=== PATIENT | female | born 1990 | race Caucasian/White ===

== ENCOUNTER 2017-12-22 14:23 | Emergency (ER) | payer SELFPAY, OTHER ==
[2017-12-22] MEDS: FLUORESCEIN OPHTH 1 MG STRIP OD (14:45)
[2017-12-22] MEDS: TETRACAINE 0.5% OPHTH SOLN 4ML OD (14:45)
[2017-12-22] MEDS: GENTAMICIN 0.3% OPHTH OINT 3.5 GM OD (15:00)
== END 2017-12-22 15:22 | disposition home or self-care (01) ==
LOC: M ED 14:23
DX: S05.01XA Injury of conjunctiva and corneal abrasion without foreign body, right eye, initial encounter (principal); X58.XXXA Exposure to other specified factors, initial encounter; Y92.099 Unspecified place in other non-institutional residence as the place of occurrence of the external cause; Y93.9 Activity, unspecified; Y99.9 Unspecified external cause status; I10 Essential (primary) hypertension; Z79.899 Other long term (current) drug therapy
CPT/HCPCS: 99282

== ENCOUNTER 2018-05-10 22:11 | Emergency (ER) | payer OTHER, SELFPAY ==
[~2018-05-10] VITALS: Ht 162.6 cm; Wt 109.1 kg
[~2018-05-10 22:11] MED LIST: BUSP15TA47; LISI-538; SERT-138
[2018-05-10] MEDS ORDERED: BUPR10TASR PO (22:22)
[2018-05-10] MEDS ORDERED: ACETAMINOPHEN 500 MG TAB PO ONE (23:00)
[2018-05-10 23:08] LABS: HCG, SERUM QUALITATIVE NEGATIVE (NEGATIVE)
[2018-05-10 23:10] LABS: BASO % 0.3 % (0.0-1.0); EOS # 0.2 10^3/uL (0.0-0.50); EOS % 1.9 % (0.0-3.0); HEMATOCRIT 37.9 % (36.0-47.0); HEMOGLOBIN 12.6 g/dl (12.0-15.5); LYMPH # 1.9 10^3/uL (1.5-6.5); LYMPH % 20.3 % (24.0-44.0); MEAN CORPUSCULAR HEMOGLOBIN 27.6 pg (27.0-33.0); MEAN CORPUSCULAR HGB CONC 33.2 g/dl (32.0-36.5); MEAN CORPUSCULAR VOLUME 82.9 fl (80.0-96.0); MONO # 0.5 10^3/uL (0.0-0.8); MONO % 5.5 % (0.0-5.0); NEUTROPHILS # 6.7 10^3/uL (1.8-7.7); NEUTROPHILS % 71.6 % (36.0-66.0); PLATELET COUNT, AUTOMATED 300 10^3/uL (150-450); RED BLOOD COUNT 4.57 10^6/uL (4.00-5.40); WHITE BLOOD COUNT 9.4 10^3/uL (4.0-10.0)
[2018-05-10 23:24] LABS: ALBUMIN 3.9 GM/DL (3.2-5.2); ALT/SGPT 39 U/L (12-78); BILIRUBIN,DIRECT < 0.1 MG/DL (0.0-0.2); BILIRUBIN,TOTAL 0.3 MG/DL (0.2-1.0); BLOOD UREA NITROGEN 16 MG/DL (7-18); CALCIUM LEVEL 8.8 MG/DL (8.5-10.1); CARBON DIOXIDE LEVEL 26 MEQ/L (21-32); CHLORIDE LEVEL 107 MEQ/L (98-107); CPK CREATINE PHOSPHOKINASE 188 U/L (26-192); CREATININE FOR GFR 0.99 MG/DL (0.55-1.30); FREE T4 0.89 NG/DL (0.76-1.46); GLOMERULAR FILTRATION RATE > 60.0 (>60); GLUCOSE, FASTING 92 MG/DL (70-100); MB/CK RELATIVE INDEX 0.59 (< OR =4); SODIUM LEVEL 141 MEQ/L (136-145); TOTAL PROTEIN 7.1 GM/DL (6.4-8.2); TROPONIN I < 0.02 NG/ML (< 0.10)
[2018-05-10] MEDS ORDERED: HYDR12.55 PO (23:36)
[2018-05-10] MEDS ORDERED: LISI10TA4 PO (23:36)
[2018-05-10] MEDS ORDERED: KETOROLAC 30 MG/ML VIAL (J1885) IV ONE (23:45)
[2018-05-10] MEDS ORDERED: **hydrALAZINE HCL** 25 MG TAB PO ONE (23:45)
[2018-05-10] MEDS ORDERED: LISINOPRIL 10 MG TAB PO ONE (23:45)
[2018-05-10 23:53] VITALS: BP 154/92
[2018-05-10 23:53] LABS: APPEARANCE, URINE HAZY (CLEAR); BACTERIA, URINE AUTO NEGATIVE (NEGATIVE); BILIRUBIN, URINE AUTO NEGATIVE (NEGATIVE); BLOOD, URINE BLOOD NEGATIVE (NEGATIVE); COLOR, URINE YELLOW (YELLOW); GLUCOSE, URINE (UA) AUTO NEGATIVE (NEGATIVE); KETONE, URINE AUTO NEGATIVE (NEGATIVE); LEUKOCYTE ESTERASE, URINE AUTO NEGATIVE (NEGATIVE); NITRITE, URINE AUTO NEGATIVE (NEGATIVE); PROTEIN, URINE AUTO NEGATIVE (NEGATIVE); RBC, URINE AUTO 1 /HPF (0-3); SPECIFIC GRAVITY URINE AUTO 1.024 (1.002-1.035); SQUAMOUS EPITHELIAL CELL UR AU 18 /HPF (0-6); WBC, URINE AUTO 2 /HPF (0-3)
--- NOTE | 2018-05-10 23:53 | REPVR ---
EXAM: CT Head Without Contrast EXAM DATE/TIME: 05/10/2018 11:24 PM CLINICAL HISTORY: 27 years old, female; Pain; Headache TECHNIQUE: Imaging protocol: Axial computed tomography images of the head/brain without contrast. Radiation optimization: All CT scans at this facility use at least one of these dose optimization techniques: automated exposure control; mA and/or kV adjustment per patient size (includes targeted exams where dose is matched to clinical indication); or iterative reconstruction. COMPARISON: CT Head without contrast 05/04/2013 4:37 PM FINDINGS: Brain: No CT evidence of acute intracranial hemorrhage or acute territorial infarction. No significant mass effect or midline shift. Basal cisterns patent. Ventricles: Normal in size and configuration. Bones/joints: No acute osseous abnormality. Sinuses: Partial opacification of the left ethmoid air cells and left inferior frontal sinus. Mastoid air cells: Grossly unremarkable. Soft tissues: Grossly unremarkable. IMPRESSION: 1. No CT evidence of acute intracranial pathology. 2. Additional findings, as above. Electronically signed by: Ayush Barriga On 05/10/2018 23:53:29 PM
[2018-05-11 00:25] VITALS: BP 141/79
--- NOTE | 2018-05-11 06:45 | ECGEPIP ---
Stationary ECG Study [facility] - ED Test Date: 2018-05-10 Pat Name: EUN MEEHAN Department: Room: - Gender: F Project Administrator: af : [id number] Requested By: LONDON Glover Order Number: [id number] Reading MD: Angel Sawant Measurements Intervals [place] Rate: 79 P: 38 IA: 166 QRS: 11 QRSD: 94 T: 22 QT: 379 QTc: 435 Interpretive Statements SINUS RHYTHM SIMILAR TO 05/04/13 Electronically Signed On 05-11-2018 6:45:38 EDT by Angel Sawant
--- NOTE | 2018-05-11 08:10 | REP ---
Chest x-ray: Two views. History: Chest pain . Comparison study: May 04, 2013 . Findings: The lungs are well inflated and free of infiltrate. The pleural angles are sharp. The heart size is normal. Pulmonary vasculature is not increased. No significant bony abnormality is seen. Impression: Negative chest x-ray. Electronically Signed by Chase Le MD 05/11/2018 08:01 A
== END 2018-05-11 00:33 | disposition home or self-care (01) ==
LOC: M ED 22:11
DX: R51 Headache (principal); I16.0 Hypertensive urgency; Z87.891 Personal history of nicotine dependence; Z82.49 Family history of ischemic heart disease and other diseases of the circulatory system
CPT/HCPCS: 36415; 70450; 71046; 80048; 80076; 81001; 82550; 82553; 84439; 84443; 84703; 85025; 93005; 93041; 94760; 96374; 99284; J1885

== ENCOUNTER → 2019-01-05 | Outpatient (REF) | payer OTHER ==
[~2019-01-05] MED LIST changes: +BUPR10TASR PO; +HYDR12.55 PO; +LISI10TA15 PO; +LISI10TA4 PO
[2019-01-05 12:44] LABS: BASO % 0.5 % (0.0-1.0); EOS # 0.1 10^3/uL (0.0-0.5); EOS % 1.6 % (0.0-3.0); HEMOGLOBIN 13.6 g/dl (12.0-15.5); LYMPH # 1.5 10^3/uL (1.5-5.0); LYMPH % 20.4 % (24.0-44.0); MEAN CORPUSCULAR HEMOGLOBIN 27.7 pg (27.0-33.0); MEAN CORPUSCULAR HGB CONC 32.4 g/dl (32.0-36.5); MEAN CORPUSCULAR VOLUME 85.5 fl (80.0-96.0); MONO # 0.5 10^3/uL (0.0-0.8); MONO % 6.7 % (0.0-5.0); NEUTROPHILS # 5.2 10^3/uL (1.5-8.5); NEUTROPHILS % 70.3 % (36.0-66.0); PLATELET COUNT, AUTOMATED 319 10^3/uL (150-450); RED BLOOD COUNT 4.91 10^6/uL (4.00-5.40); WHITE BLOOD COUNT 7.5 10^3/uL (4.0-10.0)
[2019-01-05 12:52] LABS: ALBUMIN 3.7 GM/DL (3.2-5.2); ALT/SGPT 70 U/L (12-78); BILIRUBIN,TOTAL 0.6 MG/DL (0.2-1.0); BLOOD UREA NITROGEN 13 MG/DL (7-18); CALCIUM LEVEL 8.7 MG/DL (8.5-10.1); CARBON DIOXIDE LEVEL 27 MEQ/L (21-32); CHLORIDE LEVEL 107 MEQ/L (98-107); CHOLESTEROL LEVEL 218 MG/DL (<200); CHOLESTEROL RISK RATIO 6.411 (<5); CREATININE FOR GFR 0.89 MG/DL (0.55-1.30); FREE T4 0.88 NG/DL (0.76-1.46); GLOMERULAR FILTRATION RATE > 60.0 (>60); GLUCOSE, FASTING 103 MG/DL (70-100); HDL CHOLESTEROL 34 MG/DL (>40); LDL CHOLESTEROL 153 MG/DL (<100); NON-HDL-C 184 MG/DL; POTASSIUM SERUM 4.3 MEQ/L (3.5-5.1); SODIUM LEVEL 142 MEQ/L (136-145); TOTAL PROTEIN 6.9 GM/DL (6.4-8.2); TRIGLYCERIDES LEVEL 156 MG/DL (<150)
[2019-01-05 12:54] LABS: TOTAL 25(OH) VITAMIN D 17.9 NG/ML (30.0-100.0)
[2019-01-05 14:02] LABS: HEMOGLOBIN A1c 5.4 %
== END ==
LOC: M LAB REF 11:54
PROVIDERS: ATTEND Nurse Practitioner Family
DX: Z13.9 Encounter for screening, unspecified (principal); I10 Essential (primary) hypertension; E78.5 Hyperlipidemia, unspecified

== ENCOUNTER → 2019-05-26 | Outpatient (REF) | payer OTHER, SELFPAY ==
[2019-05-26 13:56] LABS: BASO % 0.5 % (0.0-1.0); EOS # 0.1 10^3/uL (0.0-0.5); EOS % 1.6 % (0.0-3.0); HEMATOCRIT 40.3 % (36.0-47.0); HEMOGLOBIN 12.9 g/dl (12.0-15.5); LYMPH # 1.4 10^3/uL (1.5-5.0); LYMPH % 19.1 % (24.0-44.0); MEAN CORPUSCULAR HEMOGLOBIN 27.9 pg (27.0-33.0); MEAN CORPUSCULAR VOLUME 87.2 fl (80.0-96.0); MONO # 0.4 10^3/uL (0.0-0.8); MONO % 5.4 % (0.0-5.0); NEUTROPHILS # 5.4 10^3/uL (1.5-8.5); NEUTROPHILS % 73.1 % (36.0-66.0); PLATELET COUNT, AUTOMATED 318 10^3/uL (150-450); RED BLOOD COUNT 4.62 10^6/uL (4.00-5.40); WHITE BLOOD COUNT 7.4 10^3/uL (4.0-10.0)
[2019-05-26 14:08] LABS: ALBUMIN 3.8 GM/DL (3.2-5.2); ALT/SGPT 99 U/L (12-78); BILIRUBIN,TOTAL 0.5 MG/DL (0.2-1.0); BLOOD UREA NITROGEN 13 MG/DL (7-18); CALCIUM LEVEL 9.1 MG/DL (8.5-10.1); CARBON DIOXIDE LEVEL 24 MEQ/L (21-32); CHLORIDE LEVEL 107 MEQ/L (98-107); CHOLESTEROL LEVEL 205 MG/DL (<200); CREATININE FOR GFR 0.91 MG/DL (0.55-1.30); GLOMERULAR FILTRATION RATE > 60.0 (>60); GLUCOSE, FASTING 104 MG/DL (70-100); HDL CHOLESTEROL 37 MG/DL (>40); LDL CHOLESTEROL 135 MG/DL (<100); NON-HDL-C 168 MG/DL; POTASSIUM SERUM 4.5 MEQ/L (3.5-5.1); SODIUM LEVEL 138 MEQ/L (136-145); TOTAL PROTEIN 7.3 GM/DL (6.4-8.2); TRIGLYCERIDES LEVEL 164 MG/DL (<150)
[2019-05-26 14:11] LABS: APPEARANCE, URINE CLOUDY (CLEAR); BACTERIA, URINE AUTO 3+ (NEGATIVE); BILIRUBIN, URINE AUTO NEGATIVE (NEGATIVE); BLOOD, URINE BLOOD NEGATIVE (NEGATIVE); COLOR, URINE YELLOW (YELLOW); GLUCOSE, URINE (UA) AUTO NEGATIVE (NEGATIVE); KETONE, URINE AUTO NEGATIVE (NEGATIVE); LEUKOCYTE ESTERASE, URINE AUTO TRACE (NEGATIVE); MUCUS, URINE SMALL (NEGATIVE); NITRITE, URINE AUTO NEGATIVE (NEGATIVE); PROTEIN, URINE AUTO NEGATIVE (NEGATIVE); RBC, URINE AUTO 3 /HPF (0-3); SPECIFIC GRAVITY URINE AUTO 1.023 (1.002-1.035); SQUAMOUS EPITHELIAL CELL UR AU 23 /HPF (0-6); UROBILINOGEN, URINE AUTO 0.2 mg/dL (0.0-2.0); WBC, URINE AUTO 15 /HPF (0-3)
[2019-05-26 14:12] LABS: TOTAL 25(OH) VITAMIN D 43.9 NG/ML (30.0-100.0)
[2019-05-26 14:13] LABS: HEMOGLOBIN A1c 5.5 %
== END ==
LOC: M LAB REF 12:53
PROVIDERS: ATTEND Nurse Practitioner Family
DX: E55.9 Vitamin D deficiency, unspecified (principal); Z13.9 Encounter for screening, unspecified; F41.8 Other specified anxiety disorders; E78.5 Hyperlipidemia, unspecified; I10 Essential (primary) hypertension

== ENCOUNTER → 2019-06-24 | Outpatient (REF) | payer BC | LOC: M SFHCWAGY 17:15 | PROVIDERS: ATTEND Nurse Practitioner Family | DX: Z12.4 Encounter for screening for malignant neoplasm of cervix (principal) | CPT/HCPCS: 87624; G0123 ==

== ENCOUNTER → 2019-08-25 | Outpatient (REF) | payer BC ==
[2019-08-25 14:09] LABS: BASO # 0.1 10^3/uL (0.0-0.2); BASO % 0.4 % (0.0-1.0); EOS # 0.1 10^3/uL (0.0-0.5); EOS % 1.2 % (0.0-3.0); HEMATOCRIT 42.2 % (36.0-47.0); HEMOGLOBIN 13.5 g/dl (12.0-15.5); LYMPH # 2.1 10^3/uL (1.5-5.0); LYMPH % 17.7 % (24.0-44.0); MEAN CORPUSCULAR HEMOGLOBIN 27.6 pg (27.0-33.0); MEAN CORPUSCULAR VOLUME 86.3 fl (80.0-96.0); MONO # 0.6 10^3/uL (0.0-0.8); MONO % 5.5 % (0.0-5.0); NEUTROPHILS # 8.7 10^3/uL (1.5-8.5); NEUTROPHILS % 74.8 % (36.0-66.0); PLATELET COUNT, AUTOMATED 349 10^3/uL (150-450); RED BLOOD COUNT 4.89 10^6/uL (4.00-5.40); WHITE BLOOD COUNT 11.6 10^3/uL (4.0-10.0)
[2019-08-25 14:26] LABS: APPEARANCE, URINE HAZY (CLEAR); BACTERIA, URINE AUTO 1+ (NEGATIVE); BILIRUBIN, URINE AUTO NEGATIVE (NEGATIVE); BLOOD, URINE BLOOD NEGATIVE (NEGATIVE); COLOR, URINE YELLOW (YELLOW); GLUCOSE, URINE (UA) AUTO NEGATIVE (NEGATIVE); KETONE, URINE AUTO NEGATIVE (NEGATIVE); LEUKOCYTE ESTERASE, URINE AUTO TRACE (NEGATIVE); MUCUS, URINE SMALL (NEGATIVE); NITRITE, URINE AUTO NEGATIVE (NEGATIVE); PROTEIN, URINE AUTO NEGATIVE (NEGATIVE); RBC, URINE AUTO 1 /HPF (0-3); SPECIFIC GRAVITY URINE AUTO 1.026 (1.002-1.035); SQUAMOUS EPITHELIAL CELL UR AU 4 /HPF (0-6); UROBILINOGEN, URINE AUTO 0.2 mg/dL (0.0-2.0); WBC, URINE AUTO 2 /HPF (0-3)
[2019-08-25 14:32] LABS: ALBUMIN 3.9 GM/DL (3.2-5.2); ALT/SGPT 66 U/L (12-78); BILIRUBIN,TOTAL 0.6 MG/DL (0.2-1.0); BLOOD UREA NITROGEN 13 MG/DL (7-18); CALCIUM LEVEL 9.2 MG/DL (8.5-10.1); CARBON DIOXIDE LEVEL 25 MEQ/L (21-32); CHLORIDE LEVEL 104 MEQ/L (98-107); CHOLESTEROL LEVEL 235 MG/DL (<200); CHOLESTEROL RISK RATIO 5.875 (<5); CREATININE FOR GFR 0.95 MG/DL (0.55-1.30); GLOMERULAR FILTRATION RATE > 60.0 (>60); GLUCOSE, FASTING 75 MG/DL (70-100); HDL CHOLESTEROL 40 MG/DL (>40); LDL CHOLESTEROL 141 MG/DL (<100); NON-HDL-C 195 MG/DL; POTASSIUM SERUM 4.4 MEQ/L (3.5-5.1); SODIUM LEVEL 138 MEQ/L (136-145); TOTAL PROTEIN 7.3 GM/DL (6.4-8.2); TRIGLYCERIDES LEVEL 271 MG/DL (<150)
== END ==
LOC: M LAB REF 12:04
PROVIDERS: ATTEND Nurse Practitioner Family
DX: R74.8 Abnormal levels of other serum enzymes (principal); N39.0 Urinary tract infection, site not specified; F41.8 Other specified anxiety disorders; E78.5 Hyperlipidemia, unspecified; I10 Essential (primary) hypertension

== ENCOUNTER 2019-09-07 15:13 | Emergency (ER) | payer BC ==
[2019-09-07] MEDS ORDERED: MECLIZINE 25 MG TABLET As Ordered ONE (17:11)
[2019-09-07] MEDS ORDERED: MECLIZINE 25 MG TABLET ONE (17:11)
[2019-10-03 22:48] LABS: ALBUMIN 3.5 GM/DL (3.2-5.2); ALT/SGPT 48 U/L (12-78); BILIRUBIN,TOTAL 0.4 MG/DL (0.2-1.0); BLOOD UREA NITROGEN 17 MG/DL (7-18); CALCIUM LEVEL 9.4 MG/DL (8.5-10.1); CARBON DIOXIDE LEVEL 27 MEQ/L (21-32); CHLORIDE LEVEL 108 MEQ/L (98-107); CREATININE FOR GFR 0.88 MG/DL (0.55-1.30); GLOMERULAR FILTRATION RATE > 60.0 (>60); GLUCOSE, FASTING 73 MG/DL (70-100); POTASSIUM SERUM 4.4 MEQ/L (3.5-5.1); SODIUM LEVEL 143 MEQ/L (136-145); TOTAL PROTEIN 7.1 GM/DL (6.4-8.2)
== END 2019-09-07 18:10 | disposition home or self-care (01) ==
LOC: M ED 15:13
DX: R42 Dizziness and giddiness (principal); E11.9 Type 2 diabetes mellitus without complications; I10 Essential (primary) hypertension; E28.2 Polycystic ovarian syndrome; Z79.899 Other long term (current) drug therapy

== ENCOUNTER → 2020-01-19 | Outpatient (REF) | payer BC | LOC: M SFHCWAGY 17:34 | PROVIDERS: ATTEND Nurse Practitioner Family | DX: R93.89 Abnormal findings on diagnostic imaging of other specified body structures (principal) ==

== ENCOUNTER → 2021-03-20 | Outpatient (CLI) | payer BC ==
[~2021-03-20] MED LIST changes: -LISI-538; -LISI10TA15 PO; +LISI10TA22 PO; +LISI10TA24 PO; -LISI10TA4 PO; +LISI20TA33
[2021-03-20 08:56] LABS: BASO # 0.1 10^3/uL (0.0-0.2); BASO % 0.7 % (0.0-1.0); EOS # 0.2 10^3/uL (0.0-0.5); EOS % 2.2 % (0.0-3.0); HEMATOCRIT 39.7 % (36.0-47.0); LYMPH # 1.9 10^3/uL (1.5-5.0); LYMPH % 21.2 % (24.0-44.0); MEAN CORPUSCULAR HEMOGLOBIN 29.3 pg (27.0-33.0); MEAN CORPUSCULAR HGB CONC 32.7 g/dl (32.0-36.5); MEAN CORPUSCULAR VOLUME 89.4 fl (80.0-96.0); MONO # 0.5 10^3/uL (0.0-0.8); MONO % 5.6 % (2.0-8.0); NEUTROPHILS # 6.3 10^3/uL (1.5-8.5); NEUTROPHILS % 70.1 % (36.0-66.0); PLATELET COUNT, AUTOMATED 376 10^3/uL (150-450); RED BLOOD COUNT 4.44 10^6/uL (4.00-5.40)
[2021-03-20 09:37] LABS: IMMUNOGLOBULIN E 25.8 IU/ML (<100); THYROID STIMULATING HORMONE 2.47 uIU/ML (0.358-3.740); THYROXINE (T4) 12.1 UG/DL (4.5-12.0)
== END ==
LOC: M LAB 07:49
PROVIDERS: ATTEND Physician Assistant
DX: R53.81 Other malaise (principal); J30.89 Other allergic rhinitis; J01.81 Other acute recurrent sinusitis

== ENCOUNTER → 2021-04-17 | Outpatient (CLI) | payer BC | LOC: M LAB 06:14 | PROVIDERS: ATTEND Physician Assistant | DX: J30.89 Other allergic rhinitis (principal) ==

== ENCOUNTER → 2021-04-18 | Outpatient (CLI) | payer BC ==
[2021-04-18 17:50] LABS: HCG, SERUM QUALITATIVE POSITIVE (NEGATIVE)
== END ==
LOC: M LAB 16:27
PROVIDERS: ATTEND Nurse Practitioner Family
DX: N91.1 Secondary amenorrhea (principal)

== ENCOUNTER 2021-05-03 08:37 | Emergency (ER) | payer BC ==
[~2021-05-03] VITALS: Ht 162.6 cm; Wt 99.1 kg
[~2021-05-03 08:37] MED LIST changes: -BUSP10TA; -DEBL1TAB; -LEVO25TA5
[2021-05-03] MEDS ORDERED: LEVO25TA5 (08:53)
[2021-05-03] MEDS ORDERED: BUSP10TA (08:53)
[2021-05-03] MEDS ORDERED: DEBL1TAB (08:53)
[2021-05-03 09:13] LABS: BASO % 0.4 % (0.0-1.0); EOS # 0.1 10^3/uL (0.0-0.5); EOS % 1.2 % (0.0-3.0); HEMATOCRIT 35.9 % (36.0-47.0); HEMOGLOBIN 12.3 g/dl (12.0-15.5); LYMPH # 1.6 10^3/uL (1.5-5.0); LYMPH % 18.1 % (24.0-44.0); MEAN CORPUSCULAR HEMOGLOBIN 29.6 pg (27.0-33.0); MEAN CORPUSCULAR HGB CONC 34.3 g/dl (32.0-36.5); MEAN CORPUSCULAR VOLUME 86.3 fl (80.0-96.0); MONO # 0.7 10^3/uL (0.0-0.8); MONO % 7.4 % (2.0-8.0); NEUTROPHILS # 6.4 10^3/uL (1.5-8.5); NEUTROPHILS % 72.6 % (36.0-66.0); PLATELET COUNT, AUTOMATED 378 10^3/uL (150-450); RED BLOOD COUNT 4.16 10^6/uL (4.00-5.40); WHITE BLOOD COUNT 8.9 10^3/uL (4.0-10.0)
[2021-05-03 11:40] LABS: BILIRUBIN, URINE MANUAL NEGATIVE (NEGATIVE); GLUCOSE, URINE (UA) MANUAL NEGATIVE (NEGATIVE); KETONE, URINE MANUAL NEGATIVE (NEGATIVE); UROBILINOGEN, URINE MANUAL NORMAL (NORMAL)
[2021-05-03 11:48] LABS: RBC, URINE TNTC /hpf (0-3); SQUAMOUS EPITHELIAL CELL URINE LARGE AMOUNT /hpf (SMALL AMT); TRANSITIONAL EPI CELLS, URINE SMALL AMOUNT /hpf
[2021-05-03 11:49] LABS: BACTERIA, URINE MOD AMOUNT; MUCUS, URINE SMALL AMOUNT (NEGATIVE)
[2021-05-03 12:13] VITALS: BP 130/86
== END 2021-05-03 12:20 | disposition home or self-care (01) ==
LOC: M ED 08:37
DX: O20.8 Other hemorrhage in early pregnancy (principal); Z3A.01 Less than 8 weeks gestation of pregnancy; O10.011 Pre-existing essential hypertension complicating pregnancy, first trimester; O34.81 Maternal care for other abnormalities of pelvic organs, first trimester; Z79.899 Other long term (current) drug therapy

== ENCOUNTER → 2021-05-03 | Outpatient (REF) | payer BC ==
[~2021-05-03] MED LIST changes: +BUSP10TA; +DEBL1TAB; +LEVO25TA5
[2021-05-03 18:18] LABS: HEPATITIS B SURFACE ANTIGEN NEGATIVE (NEGATIVE); HEPATITIS C VIRUS ABY INDEX 0.2 INDEX (<0.8); HIV 1&2 SCREEN CENTAUR NEGATIVE (NEGATIVE)
== END ==
LOC: M LAB REF 16:10
PROVIDERS: ATTEND Obstetrics & Gynecology
DX: Z34.81 Encounter for supervision of other normal pregnancy, first trimester (principal)

== ENCOUNTER → 2021-10-01 | Outpatient (CLI) | payer BC ==
[~2021-10-01] MED LIST changes: +BUSP10TA; +DEBL1TAB; +LEVO25TA5
[2021-10-01 08:18] LABS: BASO % 0.1 % (0.0-1.0); EOS # 0.1 10^3/uL (0.0-0.5); EOS % 0.9 % (0.0-3.0); HEMATOCRIT 32.3 % (36.0-47.0); HEMOGLOBIN 10.5 g/dl (12.0-15.5); LYMPH % 9.1 % (24.0-44.0); MEAN CORPUSCULAR HGB CONC 32.5 g/dl (32.0-36.5); MEAN CORPUSCULAR VOLUME 86.1 fl (80.0-96.0); MONO # 0.5 10^3/uL (0.0-0.8); MONO % 4.5 % (2.0-8.0); NEUTROPHILS # 9.3 10^3/uL (1.5-8.5); NEUTROPHILS % 84.9 % (36.0-66.0); PLATELET COUNT, AUTOMATED 191 10^3/uL (150-450); RED BLOOD COUNT 3.75 10^6/uL (4.00-5.40)
== END ==
LOC: M LAB 06:53
PROVIDERS: ATTEND Obstetrics & Gynecology
DX: Z34.02 Encounter for supervision of normal first pregnancy, second trimester (principal); Z36.89 Encounter for other specified antenatal screening

== ENCOUNTER 2021-11-20 15:24 | Inpatient (IN) | payer BC ==
[~2021-11-20] VITALS: Ht 162.6 cm; Wt 126.7 kg
[2021-11-20] VITALS (8 sets, daily range): BP systolic 136–188; BP diastolic 75–91
[~2021-11-20 15:24] MED LIST changes: -GLYB5TAB6 PO; -LABE20TAB PO; -METF750T36 PO; -MULTTAB20 PO; -TUMS1000 PO
[2021-11-20] MEDS ORDERED: TUMS1000 PO (15:52)
[2021-11-20] MEDS ORDERED: MULTTAB20 PO (15:52)
[2021-11-20] MEDS ORDERED: GLYB5TAB6 PO (15:54)
[2021-11-20] MEDS ORDERED: LABE20TAB PO (15:55)
[2021-11-20] MEDS ORDERED: METF750T36 PO (15:56)
[2021-11-20] MEDS ORDERED: HOME MED LIST COMPLETE! XX SCH (16:00)
[2021-11-20] MEDS: BETAMETHASONE SOLUSPAN 6MG/ML 5ML VIAL (J0702 PER 3MG) IM SCH (16:29)
[2021-11-20] MEDS: SERTRALINE HCL 50 MG TAB PO SCH (20:53)
[2021-11-20] MEDS: LABETALOL 200 MG TAB PO SCH (20:55)
[2021-11-20] MEDS ORDERED: metFORMIN XR 500MG TAB *GLUCOPHAGE XR PO ONE (21:05)
[2021-11-21] VITALS (7 sets, daily range): BP systolic 120–182; BP diastolic 57–84
[2021-11-21] MEDS: LEVOTHYROXINE 25MCG TABLET (0.025MG) PO SCH (05:43)
[2021-11-21 07:29] LABS: HEMATOCRIT 36.1 % (36.0-47.0); HEMOGLOBIN 12.3 g/dl (12.0-15.5); MEAN CORPUSCULAR HEMOGLOBIN 29.4 pg (27.0-33.0); MEAN CORPUSCULAR HGB CONC 34.1 g/dl (32.0-36.5); MEAN CORPUSCULAR VOLUME 86.4 fl (80.0-96.0); PLATELET COUNT, AUTOMATED 199 10^3/uL (150-450); RED BLOOD COUNT 4.18 10^6/uL (4.00-5.40); WHITE BLOOD COUNT 11.9 10^3/uL (4.0-10.0)
[2021-11-21 08:02] LABS: ALT/SGPT 28 U/L (12-78); BILIRUBIN,TOTAL 0.3 MG/DL (0.2-1.0); CREATININE FOR GFR 0.65 MG/DL (0.55-1.30); GLOMERULAR FILTRATION RATE > 60.0 (>60); LDH LACTATE DEHYDROGENASE 167 U/L (84-246); URIC ACID 5.6 MG/DL (2.6-6.0)
[2021-11-21] MEDS: LABETALOL 200 MG TAB PO SCH ×2 (08:48→20:33)
[2021-11-21] MEDS: BETAMETHASONE SOLUSPAN 6MG/ML 5ML VIAL (J0702 PER 3MG) IM SCH (16:28)
[2021-11-21] MEDS ORDERED: metFORMIN XR 500MG TAB *GLUCOPHAGE XR PO SCH (18:00)
[2021-11-21] MEDS: SERTRALINE HCL 50 MG TAB PO SCH (20:32)
[2021-11-22] VITALS (17 sets, daily range): BP systolic 129–194; BP diastolic 65–98
[2021-11-22] MEDS ORDERED: CALCIUM CARBONATE 500 MG CHEW U/D PO ONE (00:55)
[2021-11-22] MEDS: LEVOTHYROXINE 25MCG TABLET (0.025MG) PO SCH (05:47)
[2021-11-22] MEDS ORDERED: ceFAZolin SOD 3 GM IV Place Holder IV ONE (06:40)
[2021-11-22] MEDS ORDERED: TRANEXAMIC ACID INJection 1,000 MG in NS 100 ML IV PRN (06:40)
[2021-11-22] MEDS ORDERED: CARBOPROST TROMETHAMINE 250 MCG/ML AMP IM PRN (06:40)
[2021-11-22] MEDS ORDERED: OXYTOCIN INJ 10 UNITS/ML VIAL (J2590) IM PRN (06:40)
[2021-11-22] MEDS ORDERED: BICITRA 30ML SOLN UDC PO ONE (06:40)
[2021-11-22] MEDS ORDERED: OXYTOCIN DRIP 30 UNITS in IV 1 EA IV PRN ×4 (06:40)
[2021-11-22] MEDS ORDERED: ceFAZolin SOD 1 GM in D5W MINI-BAG PLUS 50 ML IV ONE (06:45)
[2021-11-22] MEDS ORDERED: ceFAZolin SOD 2 GM in IV 1 EA IV ONE (06:45)
[2021-11-22 07:12] LABS: HEMATOCRIT 35.5 % (36.0-47.0); HEMOGLOBIN 11.9 g/dl (12.0-15.5); MEAN CORPUSCULAR HEMOGLOBIN 29.6 pg (27.0-33.0); MEAN CORPUSCULAR HGB CONC 33.5 g/dl (32.0-36.5); MEAN CORPUSCULAR VOLUME 88.3 fl (80.0-96.0); PLATELET COUNT, AUTOMATED 189 10^3/uL (150-450); RED BLOOD COUNT 4.02 10^6/uL (4.00-5.40); WHITE BLOOD COUNT 11.8 10^3/uL (4.0-10.0)
[2021-11-22] MEDS: LR 1,000 ML IV SCH ×3 (07:20→21:00)
[2021-11-22] MEDS: LABETALOL 200 MG TAB PO SCH ×2 (07:49→21:42)
[2021-11-22 07:53] LABS: ALT/SGPT 25 U/L (12-78); BILIRUBIN,TOTAL 0.2 MG/DL (0.2-1.0); CREATININE FOR GFR 0.75 MG/DL (0.55-1.30); GLOMERULAR FILTRATION RATE > 60.0 (>60); LDH LACTATE DEHYDROGENASE 179 U/L (84-246); URIC ACID 6.3 MG/DL (2.6-6.0)
[2021-11-22] MEDS ORDERED: OXYTOCIN INJ 10 UNITS/ML VIAL (J2590) As Ordered ONE (08:15)
[2021-11-22] MEDS ORDERED: SERTRALINE HCL 50 MG TAB PO SCH (09:00)
[2021-11-22] MEDS ORDERED: KETOROLAC 60MG 2ML VIAL As Ordered ONE (09:01)
[2021-11-22] MEDS ORDERED: RHOGAM 300 MCG (1500 IU) INJ (J2790) IM SCH (09:45)
[2021-11-22] MEDS ORDERED: SIMETHICONE 80MG CHEW TAB PO PRN (09:45)
[2021-11-22] MEDS ORDERED: OXYTOCIN DRIP 30 UNITS in IV 1 EA IV SCH (09:45)
[2021-11-22] MEDS ORDERED: MOM 30ML SUSPENSION UDC PO PRN (09:45)
[2021-11-22] MEDS ORDERED: MORPHINE PRES-FREE INJ 10 MG/10 ML VIAL As Ordered ONE (10:17)
[2021-11-22] MEDS ORDERED: METOCLOPRAMIDE INJ 10MG/2ML VIAL (J2765 PER 1) As Ordered ONE (10:19)
[2021-11-22] MEDS ORDERED: PHENYLephrine 500MCG 5ML (100MCG/ML) SYRINGE As Ordered ONE (10:23)
[2021-11-22] MEDS ORDERED: METOCLOPRAMIDE INJ 10MG/2ML VIAL (J2765 PER 1) IV PRN (10:30)
[2021-11-22] MEDS ORDERED: diphenhydrAMINE 50MG/ML VIAL (J1200) IV PRN (10:30)
[2021-11-22] MEDS ORDERED: ONDANSETRON 4MG 2ML VIAL IV PRN (10:30)
[2021-11-22] MEDS ORDERED: fentaNYL 100 MCG/2 ML INJECTION IV PRN (10:30)
[2021-11-22] MEDS: SLF 3 ML SYR IV SCH ×2 (10:30→18:57)
[2021-11-22] MEDS ORDERED: NALOXONE INJ 0.4MG/1ML VIAL (J2310 PER 1MG) IV PRN ×2 (10:30)
[2021-11-22] MEDS ORDERED: **NOTE PATIENT COMMENT** MISC XX SCH (10:30)
[2021-11-22] MEDS ORDERED: oxyCODONE 5MG TAB PO PRN (10:30)
[2021-11-22] MEDS ORDERED: ACETAMINOPHEN 1000MG 100ML IV BTL (OFIRMEV) (J0131 PER 10MG) As Ordered ONE (10:32)
[2021-11-22 10:37] LABS: CORD GAS ABE A -3.4; CORD GAS ABE V -5.2; CORD GAS HCO3 A 24.9 MEQ/L; CORD GAS HCO3 V 22.1 MEQ/L; CORD GAS O2 SAT A 26.7 %; CORD GAS O2 SAT V 44.6 %; CORD GAS PCO2 A 60.1 mmHg; CORD GAS PCO2 V 50.1 mmHg; CORD GAS PH A 7.235 UNITS; CORD GAS PH V 7.262 UNITS; CORD GAS PO2 A 15.4 mmHg; CORD GAS PO2 V 21.2 mmHg; CORD GAS SBC A 20.2 MEQ/L; CORD GAS SBC V 19.1 MEQ/L; CORD GAS TCO2 A 26.7 MEQ/L; CORD GAS TCO2 V 23.6 MEQ/L
[2021-11-22] MEDS ORDERED: oxyCODONE 5MG TAB As Ordered ONE (11:10)
[2021-11-22] MEDS ORDERED: LR 500 ML IV ONE ×2 (16:10→20:00)
[2021-11-22] MEDS: KETOROLAC 30 MG/ML 1ML VIAL IV SCH ×2 (16:28→21:08)
[2021-11-22] MEDS: SERTRALINE HCL 50 MG TAB PO SCH (21:08)
[2021-11-22] MEDS: DOCUSATE SODIUM 100MG CAPSULE PO SCH (21:08)
[2021-11-22] MEDS: metFORMIN XR 500MG TAB *GLUCOPHAGE XR PO SCH (21:58)
[2021-11-23 02:00] VITALS: BP 123/72
[2021-11-23] MEDS: SLF 3 ML SYR IV SCH (02:30)
[2021-11-23] MEDS: KETOROLAC 30 MG/ML 1ML VIAL IV SCH (04:15)
[2021-11-23] MEDS: LR 1,000 ML IV SCH (05:47)
[2021-11-23 06:00] VITALS: BP 150/83
[2021-11-23 06:36] LABS: HEMATOCRIT 29.4 % (36.0-47.0); MEAN CORPUSCULAR HEMOGLOBIN 29.3 pg (27.0-33.0); MEAN CORPUSCULAR HGB CONC 32.7 g/dl (32.0-36.5); MEAN CORPUSCULAR VOLUME 89.6 fl (80.0-96.0); PLATELET COUNT, AUTOMATED 153 10^3/uL (150-450); RED BLOOD COUNT 3.28 10^6/uL (4.00-5.40); WHITE BLOOD COUNT 9.4 10^3/uL (4.0-10.0)
[2021-11-23 06:44] LABS: HEMOGLOBIN 9.6 g/dl (12.0-15.5)
[2021-11-23 07:04] LABS: BLOOD UREA NITROGEN 21 MG/DL (7-18); CALCIUM LEVEL 8.5 MG/DL (8.5-10.1); CARBON DIOXIDE LEVEL 21 MEQ/L (21-32); CHLORIDE LEVEL 108 MEQ/L (98-107); CREATININE FOR GFR 0.74 MG/DL (0.55-1.30); GLOMERULAR FILTRATION RATE > 60.0 (>60); GLUCOSE, FASTING 90 MG/DL (70-100); POTASSIUM SERUM 4.3 MEQ/L (3.5-5.1); SODIUM LEVEL 136 MEQ/L (136-145)
[2021-11-23] MEDS: LEVOTHYROXINE 25MCG TABLET (0.025MG) PO SCH (08:11)
[2021-11-23] MEDS ORDERED: BOOSTRIX/ADACEL VACCINE (DIPHTH/PERTUSS/ACELL/TETANUS) 0.5ML SYR IM.IMMUN ONE (09:00)
[2021-11-23] MEDS ORDERED: INFLUENZA QUADRIVALENT PF VACCINE 0.5ML SYRINGE IM.IMMUN ONE (09:00)
[2021-11-23] MEDS: PRENATAL VITAMINS CHEWABLE TABLET PO SCH (09:03)
[2021-11-23] MEDS: DOCUSATE SODIUM 100MG CAPSULE PO SCH ×2 (09:03→21:16)
[2021-11-23] MEDS: LABETALOL 200 MG TAB PO SCH ×2 (09:11→21:18)
[2021-11-23] MEDS: IBUPROFEN 800 MG TAB PO SCH ×2 (12:30→19:35)
[2021-11-23 14:00] VITALS: BP 129/64
[2021-11-23 18:00] VITALS: BP 141/94
[2021-11-23] MEDS: metFORMIN XR 500MG TAB *GLUCOPHAGE XR PO SCH (21:16)
[2021-11-23] MEDS: SERTRALINE HCL 50 MG TAB PO SCH (21:17)
[2021-11-23] MEDS: PERCOCET 5MG/325MG TAB PO PRN (21:19)
[2021-11-23 22:12] VITALS: BP 150/69
[2021-11-24 02:00] VITALS: BP 118/61
[2021-11-24] MEDS: PERCOCET 5MG/325MG TAB PO PRN (03:47)
[2021-11-24] MEDS: IBUPROFEN 800 MG TAB PO SCH (03:48)
[2021-11-24 06:00] VITALS: BP 153/80
[2021-11-24] MEDS: LEVOTHYROXINE 25MCG TABLET (0.025MG) PO SCH (06:20)
[2021-11-24] MEDS ORDERED: MEASLES,MUMPS,RUBELLA VACCINE INJ (MMR-II) (90707) SC.IMMUN ONE (09:00)
[2021-11-24 10:00] VITALS: BP 146/78
[2021-11-24] MEDS: DOCUSATE SODIUM 100MG CAPSULE PO SCH (10:16)
[2021-11-24] MEDS: PRENATAL VITAMINS CHEWABLE TABLET PO SCH (10:16)
[2021-11-24 10:17] VITALS: BP 146/78
[2021-11-24] MEDS: LABETALOL 200 MG TAB PO SCH (10:17)
[2021-11-24] MEDS ORDERED: COLA100C5 PO (10:31)
[2021-11-24] MEDS ORDERED: PERCOCET PO (10:31)
== END 2021-11-24 12:14 | disposition home or self-care (01) | DRG 540 ==
LOC: M LDO 15:24 → M LDI 11-21 14:55 → M OBS 11-22 12:30
PROVIDERS: ADMIT Advanced Practice Midwife; ATTEND Obstetrics & Gynecology
PROC: 10D00Z1 Extraction of Products of Conception, Low, Open Approach (ICD-10-PCS; principal; 2021-11-21)
DX: O32.1XX0 Maternal care for breech presentation, not applicable or unspecified (principal); O24.12 Pre-existing type 2 diabetes mellitus, in childbirth; O11.4 Pre-existing hypertension with pre-eclampsia, complicating childbirth; Z3A.34 34 weeks gestation of pregnancy; Z37.0 Single live birth

== ENCOUNTER → 2021-11-20 | Outpatient (CLI) | payer BC ==
[~2021-11-20] MED LIST changes: +GLYB5TAB6 PO; +LABE20TAB PO; +METF750T36 PO; +MULTTAB20 PO; -SERT-138; +SERT-138 PO; +TUMS1000 PO
[2021-11-20 11:00] LABS: BASO % 0.2 % (0.0-1.0); EOS # 0.1 10^3/uL (0.0-0.5); EOS % 1.1 % (0.0-3.0); HEMATOCRIT 35.5 % (36.0-47.0); HEMOGLOBIN 11.9 g/dl (12.0-15.5); LYMPH # 1.1 10^3/uL (1.5-5.0); MEAN CORPUSCULAR HGB CONC 33.5 g/dl (32.0-36.5); MEAN CORPUSCULAR VOLUME 86.6 fl (80.0-96.0); MONO # 0.4 10^3/uL (0.0-0.8); MONO % 3.9 % (2.0-8.0); NEUTROPHILS # 7.6 10^3/uL (1.5-8.5); NEUTROPHILS % 82.4 % (36.0-66.0); PLATELET COUNT, AUTOMATED 171 10^3/uL (150-450); WHITE BLOOD COUNT 9.2 10^3/uL (4.0-10.0)
[2021-11-20 11:43] LABS: ALT/SGPT 28 U/L (12-78); BILIRUBIN,TOTAL 0.2 MG/DL (0.2-1.0); GLOMERULAR FILTRATION RATE > 60.0 (>60); LDH LACTATE DEHYDROGENASE 174 U/L (84-246)
[2021-11-20 12:15] LABS: TOTAL PROTEIN 24 HOUR URINE 436.5 MG/24HR (50-150); URINE TOTAL PROTEIN 48.5 MG/DL (0-12)
== END ==
LOC: M LAB 10:31
PROVIDERS: ATTEND Advanced Practice Midwife
DX: O14.93 Unspecified pre-eclampsia, third trimester (principal)

== ENCOUNTER → 2022-01-18 | Outpatient (CLI) | payer BC ==
[~2022-01-18] MED LIST changes: +COLA100C5 PO; +GLYB5TAB6 PO; +LABE20TAB PO; +METF750T36 PO; +MULTTAB20 PO; +PERCOCET PO; +TUMS1000 PO
== END ==
LOC: M WHC 12:03
PROVIDERS: ATTEND Nurse Practitioner Family
DX: R22.2 Localized swelling, mass and lump, trunk (principal)

== ENCOUNTER → 2022-10-31 | Outpatient (CLI) | payer BC ==
[2022-10-31 08:06] LABS: HEMOGLOBIN A1c 5.1 % (4.0-6.0)
[2022-10-31 08:19] LABS: BLOOD UREA NITROGEN 16 MG/DL (9-23); CALCIUM LEVEL 9.2 MG/DL (8.5-10.1); CARBON DIOXIDE LEVEL 26 MMOL/L (20-31); CHLORIDE LEVEL 104 MMOL/L (98-107); CREATININE FOR GFR 0.88 MG/DL (0.55-1.30); GLOMERULAR FILTRATION RATE > 60.0 (>60); GLUCOSE, FASTING 115 MG/DL (60-100); POTASSIUM SERUM 4.5 MMOL/L (3.5-5.1); SODIUM LEVEL 138 MMOL/L (136-145)
== END ==
LOC: M LAB 07:23
PROVIDERS: ATTEND Nurse Practitioner Family
DX: R73.03 Prediabetes (principal)

== ENCOUNTER → 2023-06-10 | Outpatient (CLI) | payer BC ==
[2023-06-10 08:55] LABS: ALBUMIN 3.5 G/DL (3.2-5.2); ALKALINE PHOSPHATASE 109 U/L (46-116); ALT/SGPT 86 U/L (7.0-40); AST/SGOT 43 U/L (<34); BILIRUBIN,TOTAL 0.7 MG/DL (0.3-1.2); BLOOD UREA NITROGEN 14 MG/DL (9-23); CALCIUM LEVEL 9.3 MG/DL (8.5-10.1); CARBON DIOXIDE LEVEL 25 MMOL/L (20-31); CHLORIDE LEVEL 105 MMOL/L (98-107); CHOLESTEROL LEVEL 206 MG/DL (<200); CHOLESTEROL RISK RATIO 5.32 (<5); CREATININE FOR GFR 0.96 MG/DL (0.55-1.30); GLOMERULAR FILTRATION RATE > 60.0 (>60); GLUCOSE, FASTING 121 MG/DL (60-100); HDL CHOLESTEROL 38.7 MG/DL (>40); LDL CHOLESTEROL 123.9 MG/DL (<100); NON-HDL-C 167.3 MG/DL; POTASSIUM SERUM 4.6 MMOL/L (3.5-5.1); SODIUM LEVEL 139 MMOL/L (136-145); TOTAL PROTEIN 6.5 G/DL (5.7-8.2); TRIGLYCERIDES LEVEL 217 MG/DL (<150)
[2023-06-10 10:15] LABS: HEMOGLOBIN A1c 5.6 % (4.0-6.0)
== END ==
LOC: M LAB 07:16
PROVIDERS: ATTEND Nurse Practitioner Family
DX: R73.03 Prediabetes (principal)

== ENCOUNTER → 2024-04-08 | Outpatient (CLI) | payer BC ==
[2024-04-08 09:53] LABS: ALBUMIN 3.9 G/DL (3.2-5.2); ALKALINE PHOSPHATASE 106 U/L (35-104); ALT/SGPT 119 U/L (7.0-40); AST/SGOT 64 U/L (<34); BILIRUBIN,TOTAL 0.6 MG/DL (0.3-1.2); BLOOD UREA NITROGEN 11 MG/DL (9-23); CALCIUM LEVEL 9.9 MG/DL (8.5-10.1); CARBON DIOXIDE LEVEL 26 MMOL/L (20-31); CHLORIDE LEVEL 106 MMOL/L (98-107); CHOLESTEROL LEVEL 258 MG/DL (<200); GLOMERULAR FILTRATION RATE > 60.0 (>60); GLUCOSE, FASTING 129 MG/DL (60-100); HDL CHOLESTEROL 45.2 MG/DL (>40); LDL CHOLESTEROL 173.4 MG/DL (<100); NON-HDL-C 212.8 MG/DL; POTASSIUM SERUM 4.5 MMOL/L (3.5-5.1); SODIUM LEVEL 140 MMOL/L (136-145); TOTAL PROTEIN 7.1 G/DL (5.7-8.2); TRIGLYCERIDES LEVEL 197 MG/DL (<150)
[2024-04-08 10:02] LABS: HEMOGLOBIN A1c 6.2 % (4.0-6.0)
== END ==
LOC: M LAB 08:51
PROVIDERS: ATTEND Nurse Practitioner Family
DX: I10 Essential (primary) hypertension (principal); R73.03 Prediabetes

== ENCOUNTER → 2024-09-06 | Outpatient (CLI) | payer BC | LOC: M RAD 16:14 | PROVIDERS: ATTEND Physician Assistant | DX: J32.8 Other chronic sinusitis (principal) ==

== ENCOUNTER → 2024-11-04 | Outpatient (REF) | payer BC | LOC: M LAB REF 16:40 | PROVIDERS: ATTEND Physician Assistant | DX: J02.9 Acute pharyngitis, unspecified (principal) ==

== ENCOUNTER → 2024-12-17 | Outpatient (CLI) | payer BC ==
[2024-12-17 14:31] LABS: ALT/SGPT 151 U/L (7.0-40); AST/SGOT 132 U/L (<34); CALCIUM LEVEL 9.5 MG/DL (8.5-10.1); CARBON DIOXIDE LEVEL 26 MMOL/L (20-31); CHLORIDE LEVEL 104 MMOL/L (98-107); CREATININE FOR GFR 0.83 MG/DL (0.55-1.30); GLOMERULAR FILTRATION RATE > 90.0 (>60); POTASSIUM SERUM 4.9 MMOL/L (3.5-5.1); SODIUM LEVEL 140 MMOL/L (136-145)
[2024-12-17 14:35] LABS: ESTIMATED AVERAGE GLUCOSE 166.0 MG/DL (60-110)
== END ==
LOC: M WUC 08:34
PROVIDERS: ATTEND Nurse Practitioner Family
DX: R73.03 Prediabetes (principal); I10 Essential (primary) hypertension